=== PATIENT | male | born 1985 | race Hispanic/Latino ===

== ENCOUNTER 2017-02-18 23:51 | Emergency (ER) | payer SELFPAY ==
[~2017-02-18] VITALS: Ht 170.2 cm; Wt 85.9 kg
[2017-02-18 23:54] VITALS: BP 141/76; PULSE 99; RESP 20; O2SAT 93
[2017-02-19] MEDS ORDERED: Albuterol 2.5 mg/3 mL Inhalation Solution NEB ONE (00:10)
[2017-02-19 00:18] VITALS: PULSE 106; RESP 20; O2SAT 94
[2017-02-19] MEDS ORDERED: predniSONE 20 mg Tablet PO ONE (00:55)
[2017-02-19] MEDS ORDERED: Albuterol-Ipratropium 3 mL Inhalation Solution NEB ONE (00:55)
--- NOTE | 2017-02-19 01:17 | ED.REPORT ---
HPI-Dyspnea / Wheezing Date of Service Feb 19, 2017 ED Provider: The patient is a 31 yo male with history of fiberglass inhalation injury 5 years ago who presents to the ED for acute onset of SOB since yesterday. He reports a dry, persistent dry, nonproductive cough, wheezing, and severe shortness of breath that has progressively worsened today. He tried to sleep sitting up prior to arrival to the ER, but could barely breathe so his brought him to the ED. He has tried OTC cold and allergy medications with no relief. He has been out of the inhaler 5 years ago and is not taking any medication on the regular basis. He had a fiberglass injury that got to his lungs, which was treated with steroid, neb, and inhaler 5 years ago. 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 He recently got back to the insulation/fiberglass work 2 weeks ago. He denies any other symptoms, including sinus pressure, headache, nausea, vomiting, fever, or chills. His symptoms are similar to when he first got the fiberglass inhalation injury. His notes that he was very short of breath while they were taking a walk yesterday. Lying flat makes his SOB worse. The Albuterol neb treatment in the ER helps his symptoms. Patient also admits to anterior rib pain and back pain associated with the cough, but no pain at rest. Patient has seasonal allergies, but no history of asthma. He smokes 1 cigarette every 2 weeks or less. Nursing Notes Stated Complaint: HAVING TROUBLE BREATHING Chief Complaint: Respiratory Complaints Nursing Notes Reviewed: Yes Allergies: Coded Allergies: No Known Allergies (Unverified , 02/18/17) Scheduled Prednisone (PredniSONE) 20 Mg Tablet 20 MG PO DAILY General Time Seen by MD: 00:45 Chief Complaint Cough, Shortness of breath, Wheezing Hx Obtained From: Patient, Spouse Arrived By: Walk-in Sudden in Onset?: Yes Onset Occurred: Yesterday Context of Onset: Inhalation injury (history of), Other (Works with fiberglass) Symptom Duration: Since onset Location: : Back: Substernal Quality: Aching Radiation: : Does not radiate Severity: Current: No pain currently Severity: Maximum: Moderate Associated with: Reports: Chest pain, Cough, Wheeze, Denies: Fever, Hemoptysis, Nasal congestion, Nausea, Sore throat, Vomiting Pertinent Negative: Pt denies other symptoms Exacerbated by: Cough, Lying flat Relieved by: Inhaler Recent Healthcare: No recent doctor visit Similar Sx Previous: Yes Risk Factors CAD Risk Stratification Smoking PE Risk Stratification No risk factors PERC Rule All PERC criteria "No" Well's Criteria for PE Well's PE Score: 0-2 pts (low risk 3.6%) Past Medical History Past Medical History None Past Surgical History Right knee injury repair Family History Reports: Diabetes mellitus (mother with complications) Smoking History Light Tobacco Smoker (1 cigarette occasionally) Social History Alcohol Use: Denies alcohol use Drug Use: Denies drug use Other Social History: Good social support, Occupation Fiberglass insulation Ambulatory Status Independent Review of Systems Basic Review of Systems Eyes: Vision NL, No discharge GI: No abdominal pain, No anorexia, No nausea, No vomiting : No dysuria, No frequency Hematologic: No bleeding, No bruising Endocrine: No cold intolerance, No heat intolerance, No weight gain, No weight loss Neurologic: NL mental status, No weakness, No numbness Psychiatric: Normal thought content Constitutional: Reports: Fatigue, Denies: Chills, Fever, Weakness - generalized Ears / Nose / Throat: Denies: Nasal congestion, Sinus problem, Sore throat, Voice change Respiratory: Reports: Dyspnea on exertion, Non-productive cough, Pleuritic pain , Shortness of breath, Wheezing, Denies: Hemoptysis Cardiovascular: Reports: Chest pain, Dyspnea on exertion, Orthopnea, Denies: Edema, Palpitations Musculoskeletal: Reports: Back pain, Joint pain Skin: Denies Bruising, Denies Diaphoresis, Denies Itching, Denies Rash Complete sys rev & neg: except as marked. Physical Exam Initial Vital Signs Vital Signs (First) Date Time Temp Pulse Resp B/P Pulse Ox O2 Delivery O2 Flow Rate FiO2 02/18/17 23:54 36.6 99 20 141/76 93 Room Air Initial VS: Reviewed (hypertensive, mildly tachycardia), Vital signs normal Head / Eyes: Atraumatic, Normocephalic, PERRL ENT: Mucous membranes moist, Conjunctiva normal, No scleral icterus Abdomen / GI: Soft, Non-tender, No guarding, No rebound, No distention Extremities: Vascular intact, Neuro intact, No swelling, No tenderness Skin: Warm, Dry, No cyanosis Neurologic: Alert, Oriented, Nonfocal Psychiatric: Mood/affect normal, Behavior normal, Normal thought content General/Constitutional: Awake, Alert, Well appearing, Well developed, Well hydrated, Cooperative Distress / Hydration: Positive: Distress mild (respiratory) Neck: Atraumatic, Supple, Full range of motion, No adenopathy, No swelling, Non -tender Respiratory / Chest: Atraumatic, No retractions, No stridor, No chest tenderness Resp Distress / Stridor: Positive: Resp distress mild Diminished Breath Sounds: Positive: Decreased L Wheezing / Retractions: Positive: Wheeze localized (left lung lu), Wheezing expiratory, Wheezing moderate Rales / Rhonchi: Positive: Rales bilateral bases Cardiovascular: Regular rhythm, Heart sounds NL Heart Rate / Rhythm: Positive: Tachycardia Abdomen: Atraumatic, Soft, Non-tender, No guarding, No rebound, BS normoactive , No distention Back: Atraumatic, Inspection NL Flank / Spine / Paraspinal: Positive: Thorac paraspinal tend... (Mid) Muscle Spasm / ROM: Positive: Thoracic area spasm Neurologic: Oriented X3, Speech NL, No motor deficits, No sensory deficits Psychiatric: Affect NL, Mood NL, Not suicidal Interpretation & Diagnostics X-Ray Chest Interpretation View: AP & lat Interpretation / Wet Read by: Wet read ED physician NL X-Ray Chest Findings: Normal lung markings, Normal heart size, Normal mediastinum, No fracture, No acute disease Re-Eval/Medical Decision Med Decision/Clinical Course 31 yo male with history of seasonal allergies and fiberglass inhalation injury who presented to the ED for acute onset of dyspnea x 1 day. He also reports wheezing and dry cough. All of his symptoms are progressively worsened to the point that he cannot lie flat tonight. He admits to similar symptoms when he first got the inhalation injury 5 years ago. He recently returned to work the same job 2 weeks ago. He does not take any medication and has no inhaler at home. No other symptoms. On exam, patient was found to have significant expiratory wheezing on the left lung field, which improved with Neb treatments. His CXR did not reveal significant pathology. Pending radiology read. No signs or symptoms of infection. He received Albuterol Neb + DuoNeb + Prednisone 40mg PO in the ER. His symptoms quickly improved and he was discharged with Prednisone 20mg x 5 days and Albuterol Neb to use daily until his symptoms resolve. He was also given a Proair inhaler for future use as needed for SOB and wheezing. Source of Hx: Family Re-Evaluation/Progress : Time of Eval: 02:35 )( Re-Eval Resp / Chest: Mild wheezing Treatment Summary: Albuterol nebulizer x 1, Combined albut & atrovent, Steroid therapy Patient Status: Condition improved Re-Evaluation/Progress Note: Patient reports improvement of symptoms and would like to go home. CXR read by Dr. Gresham and I appears to be normal. Severity: Non life-threatening Diagnosis Appears: Non-critical Counseled Regarding: Diagnosis, Lab results, Need for follow-up, When/why to return to ED Discharge & Departure Impression: Primary Impression: Acute dyspnea Additional Impression: Wheezing Disposition: Home Discharge Condition All VS Reviewed: Yes Condition: Stable Patient Instructions: Wheezing (ED) Additional Instructions: You were in acute respiratory distress with wheezing that is possibly triggered by the seasonal allergy. There was significant wheezing on the initial exam that improved with nebulizer treatment. It is possible that this could be the result of previous inhalation injury, but the exact etiology is unclear. You should follow up with a PCP as outpatient to determine if you have asthma or other reactive airway. Avoid smoking as much as possible and you should find a different job than insulation to prevent further exposure to fiberglass. You Chest XR appears normal with no sign of infection. Because you have a nebulizer at home, Albuterol solution was given for you to use daily until your symptoms resolve. The inhaler you can keep for future use as needed for shortness of breath or wheezing. I also sent a prescription of Prednisone to your pharmacy. Please take 1 tablet daily for 5 days. Make sure to keep your seasonal allergies under control to prevent worsening of symptoms. Return to the ER if your symptoms worsen. Referrals: NOPCP (PCP) Attending Statement The patient was seen and examined together with Dr. Lili Virgen and I agree with the history, exam and plan as outlined in the note above. Marti Virgen DO Feb 19, 2017 00:37 Ryley Gresham MD Feb 19, 2017 06:51
[2017-02-19 02:09] VITALS: PULSE 96; RESP 20; O2SAT 95
[2017-02-19 02:38] VITALS: BP 132/86; PULSE 105; RESP 20; O2SAT 92
[2017-02-19] MEDS ORDERED: _Albuterol 2.5 mg/3 mL Neb NEB PRN (02:55)
[2017-02-19] MEDS ORDERED: _Proair 200 Puff/8.5 GM Inhaler INHALATION PRN (02:55)
[2017-02-19] MEDS ORDERED: PRE20 PO (03:01)
--- NOTE | 2017-02-19 08:06 | DRSVH ---
PROCEDURE: X-RAY CHEST, TWO VIEWS ([id number]) INDICATIONS: Dyspnea TECHNIQUE: 2 views of the chest were acquired. COMPARISON: 06/14/2011 FINDINGS: Surgical changes and devices: None. Lungs and pleura: No pleural effusions or pneumothorax. There is ill-defined, lobulated density in t he anterior sulcus on lateral view, possibly in the right middle lobe, compatible with pneumonia in t he appropriate clinical setting. Mediastinum: Mediastinal contours are normal. Heart size is normal. Bones and chest wall: No suspicious bony abnormalities. Soft tissues appear unremarkable. IMPRESSION: Possible right middle lobe pneumonia, correlate clinically. Followup recommended. Dictated by: Ciro Poon M.D. on 02/19/2017 at 8:01 Approved by: Ciro Poon M.D. on 02/19/2017 at 8:04
== END 2017-02-19 03:10 | disposition home or self-care (01) ==
LOC: SED 23:51
DX: R06.00 Dyspnea, unspecified (principal); R06.2 Wheezing; F17.210 Nicotine dependence, cigarettes, uncomplicated
CPT/HCPCS: 71020; 94640; 94660; 94799; 99284; J7613; J7620

== ENCOUNTER 2017-04-03 22:26 | Emergency (ER) | payer SELFPAY ==
[~2017-04-03] VITALS: Ht 170.2 cm; Wt 92.3 kg
[~2017-04-03 22:26] MED LIST: PRE20 PO
[2017-04-03 22:29] VITALS: BP 152/75; PULSE 108; RESP 25; O2SAT 94
[2017-04-03] MEDS ORDERED: Albuterol-Ipratropium 3 mL Inhalation Solution ONE (22:46)
[2017-04-03] MEDS ORDERED: Albuterol 2.5 mg/3 mL Inhalation Solution NEB ONE ×2 (22:46→23:20)
[2017-04-03 22:52] VITALS: PULSE 76; RESP 24; O2SAT 94
--- NOTE | 2017-04-03 23:09 | ED.REPORT ---
HPI-Dyspnea / Wheezing Date of Service Apr 03, 2017 ED Provider: 31-year-old male with past medical history asthma comes in today with shortness of breath. Patient states she has had multiple episodes of shortness of breath since beginning work again. His work involves insulation and crawl spaces. He has been using albuterol off and on for the last month. Today patient was short of breath when his came home from work but they were out of albuterol so she decided to take him to the emergency department. Patient was extremely wheezy upon arrival, O2 94% on room air. Patient denies nausea/ vomiting, abnormal pain, headache. Nursing Notes Stated Complaint: HARD TIME BREATHING Chief Complaint: Respiratory Complaints Allergies: Coded Allergies: No Known Allergies (Unverified , 04/03/17) Scheduled Prednisone (PredniSONE) 20 Mg Tablet 20 MG PO DAILY General Time Seen by MD: 22:49 Chief Complaint Asthma attack Hx Obtained From: Patient, Spouse Arrived By: Walk-in Sudden in Onset?: Yes Onset Occurred: Just prior to arrival Context of Onset: Asthma attack Symptom Duration: Since onset Severity: Current: No pain currently Severity: Maximum: No pain Recent Healthcare: No recent doctor visit Risk Factors CAD Risk Stratification Risk factors reviewed PE Risk Stratification Risk factors reviewed Past Medical History Past Medical History Infrequent episodes of asthma Past Surgical History Right knee injury repair Family History Reports: Diabetes mellitus Smoking History Light Tobacco Smoker Social History Alcohol Use: Denies alcohol use Drug Use: Denies drug use Other Social History: Good social support, Occupation Fiberglass insulation Ambulatory Status Independent Review of Systems Basic Review of Systems Eyes: Vision NL GI: No abdominal pain Neurologic: NL mental status Psychiatric: Normal thought content Constitutional: Denies: Chills, Fever Respiratory: Reports: Dyspnea on exertion, Pleuritic pain, Shortness of breath , Wheezing Cardiovascular: Denies: Chest pain Musculoskeletal: Denies: Back pain Complete sys rev & neg: except as marked. Physical Exam Physical Exam Notes: Patient is using the nebulizer on examination Initial Vital Signs Vital Signs (First) Date Time Temp Pulse Resp B/P Pulse Ox O2 Delivery O2 Flow Rate FiO2 04/03/17 22:29 36.9 108 25 152/75 94 Room Air Initial VS: Reviewed, Vital signs abnormal Head / Eyes: Atraumatic, Normocephalic, PERRL ENT: Mucous membranes moist, Conjunctiva normal, No scleral icterus Abdomen / GI: Soft, Non-tender, No guarding, No rebound, No distention Extremities: Vascular intact, Neuro intact, No swelling, No tenderness Skin: Warm, Dry, No cyanosis Neurologic: Alert, Oriented, Nonfocal Psychiatric: Mood/affect normal, Behavior normal, Normal thought content Respiratory / Chest: Atraumatic, Breath sounds = bilat, No rales, No rhonchi Wheezing / Retractions: Positive: Wheezing expiratory, Wheezing mild Re-Eval/Medical Decision Med Decision/Clinical Course Patient was initially given a nebulized dose of 2.5 mg albuterol here in the hospital today. After this the patient was still wheezing. He was subsequently given dexamethasone as well as 20 mg nebulized albuterol and 30 minutes later his wheezing was considerably. The patient felt better after this treatment. Chest x-ray showed no acute findings. No concern for respiratory compromise this time. No need to be admitted to the hospital. This is likely acute exacerbation of his asthma due to her work exposure to allergens. Counseled Regarding: Diagnosis, Lab results, Need for follow-up, When/why to return to ED Discharge & Departure Impression: Primary Impression: Asthma Asthma severity: mild intermittent Asthma complication type: with acute exacerbation Qualified Code: J45.21 - Mild intermittent asthma with (acute) exacerbation Disposition: Home Discharge Condition All VS Reviewed: Yes Condition: Stable Patient Instructions: Asthma (ED) Additional Instructions: You came into the emergency department with an acute exacerbation of your asthma. This was treated with nebulized albuterol. An x-ray was also obtained here in the emergency department which appears normal. We will send you an albuterol inhaler and spacer for use at home. Take as needed up to 2 puffs 4 times a day. We will send the prescription for prednisone to take for the next 3 days. We will also send you with a prescription for a steroid inhaler, as needed. He have stated that you have an appointment with your primary care provider in the next 2 weeks, please let them know if your recent admissions to the hospital at that time. Please return to the emergency department if that anytime you become acutely short of breath, or any other symptoms develop which are concerning to you. Referrals: NOPCP (PCP) [facility] Attending Statement I took a history of performed an exam. I concur with the noted above. 31-year- old male with asthma's been out of his albuterol. He presented with moderate diffuse asthma attack. He was aggressively treated and at discharge his lungs were essentially clear to auscultation and he looked and felt much better. He had mild tachycardia after the albuterol but the abdomen that he was asymptomatic. He has no history of pulmonary emboli or DVT. He is low risk well score and he met pulmonary emboli rule out criteria. He clearly has asthma. Ulnar emboli evaluation not indicated. Chest x-ray normal. Antibodies are indicated. Close outpatient follow-up and aggressive asthma treatment. Sriram Haskins DO Apr 03, 2017 22:51 Cruz Kaiser DO Apr 04, 2017 02:45
[2017-04-03] MEDS ORDERED: MethylprednisoLONE Sodium Succinate 40 mg/mL Inj IM ONE (23:15)
[2017-04-04 00:39] VITALS: PULSE 120; RESP 20; O2SAT 97
[2017-04-04] MEDS ORDERED: _Proair 200 Puff/8.5 GM Inhaler INHALATION PRN (01:30)
[2017-04-04 02:17] VITALS: BP 122/67; PULSE 105; RESP 18; O2SAT 93
--- NOTE | 2017-04-04 11:05 | DRSVH ---
PROCEDURE: X-RAY CHEST ONE VIEW ([id number]) INDICATIONS: SHORT OF BREATH, wheezing TECHNIQUE: One view of the chest was acquired. COMPARISON: None. FINDINGS: Surgical changes and devices: None. Lungs and pleura: No pleural effusions or pneumothorax. Lungs are clear. Mediastinum: Mediastinal contours appear normal. Heart size is normal. Bones and chest wall: No suspicious bony lesions. Overlying soft tissues appear unremarkable. IMPRESSION: No radiographic evidence of acute cardiopulmonary pathology. Dictated by: Elijah Monteiro M.D. on 04/04/2017 at 8:47 Approved by: Elijah Monteiro M.D. on 04/04/2017 at 8:48
== END 2017-04-04 02:20 | disposition home or self-care (01) ==
LOC: SED 22:26
DX: J45.21 Mild intermittent asthma with (acute) exacerbation (principal); F17.200 Nicotine dependence, unspecified, uncomplicated; Z98.890 Other specified postprocedural states
CPT/HCPCS: 71010; 94640; 99284; J7613; J7620